=== PATIENT | female | born 2000 | race Caucasian/White ===

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

== ENCOUNTER 2020-08-01 22:45 | Outpatient (CLI) | payer SELFPAY ==
[2020-08-01 23:21] VITALS: BP 104/55
== END 2020-08-02 00:30 | disposition home or self-care (01) ==
LOC: TRG 22:45 → APU 22:46 → TRG 08-02 00:30
PROVIDERS: ATTEND Obstetrics & Gynecology
DX: O62.4 Hypertonic, incoordinate, and prolonged uterine contractions (principal); Z3A.36 36 weeks gestation of pregnancy
CPT/HCPCS: 59025